=== PATIENT | female | born 1990 | race Caucasian/White ===

== ENCOUNTER 2017-04-18 15:28 | Emergency (ER) | payer BC ==
--- NOTE | 2017-04-18 17:39 | ED ORDER SUMMARY ---
..... Patient: RENATA LLANOS OrderSheet [facility] VisitID: [id number] [address] [place] [address] 27y, F Registration Date/Time: 04/18/2017 ORDER SHEET Weight: 65.7 kg (stated) Allergies: Benadryl GENERAL ORDERS: CBC w Diff Urgent (16:29 04/18/2017 EKoroleva P.A.-C) (Ack 16:31 JACIELoerner) (16:48 ALawrence ER Tech1) CMP Urgent (16:29 04/18/2017 EKoroleva P.A.-C) (Ack 16:31 KHoerner) (16:48 ALawrence ER Tech1) UA-Culture if indicated Urgent (16:04/18/2017 EKoroleva P.A.-C) (16:31 JRomanelli R.N.) (Ack 16:31 JACIELoeyareli) Urine Urgent (16:04/18/2017 EKoroleva P.A.-C) (16:31 JRomanelli R.N.) (Ack 16:31 JACIELoerner) MEDICATION ORDERS: KCl PO 40 meq (NOW) (17:30 04/18/2017 EKoroleva P.A.-C) (Cancelled: Other17:58 JRomanelli R.N.) IV FLUIDS: IV NS : initial bolus none -, then 1000 mL/hr (NOW) (16:17 04/18/2017 Benitezelli R.N. verbal order read back to EKoroleamy P.A.-C) (16:20 omanelli R.N.) Zofran IV 4 mg (NOW) (16:29 04/18/2017 EKoroleva P.A.-C) (17:16 JRomanelli R.N.) Toradol IV 30 mg (NOW) (16:29 04/18/2017 EKoroleva P.A.-C) (17:17 JRomanelli R.N.) ORDER SHEET NOTES: [Electronically signed by Shirley VidesAMarissa-Ramakrishna (17:42 04/18/2017)] [Electronically signed by Sami Thompson R.N. (19:34 04/18/2017)] [Electronically locked/signed by Sami Thompson R.N. (:34 04/18/2017)]
--- NOTE | 2017-04-18 17:39 | ED NURSING NOTES ---
Clinical Report - Nurses Located Within [facility] [address] [place] [address] 04/18/2017 15:31 Patient: RENATA LLANOS TRIAGE Triage time 15:35 Apr 18 2017. Acuity: LEVEL 3. Chief Complaint: NAUSEA, VOMITING and DIARRHEA. Alert. DOMINIK COMA SCORE: Alger Coma Scale: 15- eyes open spontaneously (4); best verbal response- oriented x 4 (5); best motor response- obeys commands (6). --15:49 Sami Thompson R.N. 15:36 04/18/17. BP: 109/60. HR: 88. RR: 18. O2 saturation: 97% on room air. Temp: 100.1 F. Pain level now: 12/01. Additional comments: Abdominal pain. --15:49 Sami Thompson R.N. Weight: 65.7 kg stated. Height/Length: 65 inches Per Patient. BMI: 24.1. --15:42 Sami Thompson R.N. Medications Control Pills 1 pill, daily. --15:41 Sami Thompson R.N. Allergies Benadryl. Definite Moderate(itching) --15:42 Sami Thompson R.N. History Arrived by private vehicle. Historian: patient. Accompanied by father. Primary physician (Analy Morris, [place], [place]). ( Nausea V/D since 0130 this AM. Pt states that. Pt states that she ate a Delivery meal for dinner prior to onset and she isn't sure if she wasn't allergic to some ingredient in the meal.). This started today. Onset. (about 14 hours ago). She has had nausea, vomiting and diarrhea. Treatment DIRECTOR MEDICAL: (PeptoBismol ~ 2 hours ago). PAST MEDICAL HX: Negative. Immunizations: status is unknown. Last normal menstrual period was 2 weeks ago. Denies current . SURGERY HX: No history of previous surgery. SOCIAL HX: Never smoker. No alcohol use or drug use. No recent travel. No infectious disease exposure. ABUSE ASSESSMENT: No report of abuse. FALL RISK ASSESSMENT: Fall risk assessment completed. No fall risk identified. NUTRITIONAL RISK ASSESSMENT: The nutritional risk assessment revealed no deficiencies. FUNCTIONAL ASSESSMENT: Functional assessment: no impairments noted. LEARNING NEEDS ASSESSMENT: The learning needs assessment revealed no barriers. SKIN INTEGRITY ASSESSMENT: Skin integrity risk assessment completed. No skin integrity risk identified. --15:49 Sami Thompson R.N. Interventions ID and allergy band on patient. To treatment room. --15:49 Sami Thompson R.N. PHYSICAL ASSESSMENT Ambulatory to room. GENERAL / NEURO / PSYCH: Alert. Oriented X 4. HEENT: Mucous membranes are pink. RESPIRATORY: Respirations not labored. CVS: Cardiac rhythm: (RRR). Capillary refill less than 2 seconds. GI / : Abdomen soft. Bowel sounds within normal limits. SKIN: Skin is warm and dry. --15:49 Sami Thompson R.N. NURSING PROGRESS NOTES Patient gowned. Reassurance given. Patient identifiers checked. Call light placed in reach. Side rails up x 1. Bed placed in lowest position. Brakes of bed on. Patient ready for evaluation- chart flagged and ED physician notified. --15:50 Sami Thompson R.N. 16:04 04/18/2017 Site #1 started via IV in the right wrist with an 20g angiocath, with aseptic technique and good blood return; two attempts. Saline lock flushed with 10 mL saline (Unable to draw a blood specimen from this site). --16:19 Sami Thompson R.N. 16:05 04/18/2017 Started bag #1 1000 mL IV Fluids IV NS (Saline); at 1000 mL/hr over 60 minute(s) via site #1. Allergies verified and confirmed 5 rights. IV patency established. IV site checked: no pain, redness, or swelling. IV flushed thoroughly pre- and post-medication administration. --16:20 Sami Thompson R.N. 16:45 04/18/2017 IV Fluids IV NS Bag Change: bag #1 infused. Total amount infused: 1000. STARTED bag #2 at 1000 mL/hr. Confirmed 5 rights. IV patency established. IV site checked: no pain, redness, or swelling. IV flushed thoroughly. --17:15 Sami Thompson R.N. 16:47 04/18/2017 Zofran (Ondansetron HCl) IVP 4 mg given over 2 minute(s) via site #1. Allergies verified and confirmed 5 rights. IV patency established. IV site checked: no pain, redness, or swelling. IV flushed thoroughly pre- and post-medication administration. IVP given by RN. --17:16 Sami Thompson R.N. 16:52 04/18/2017 Toradol IVP 30 mg given over 2 minute(s) via site #1. Allergies verified and confirmed 5 rights. IV patency established. IV site checked: no pain, redness, or swelling. IV flushed thoroughly pre- and post-medication administration. IVP given by RN. --17:17 Sami Thompson R.N. 17:39 04/18/2017 IV Fluids IV NS Discontinued: bag #2 infused. Total amount infused: 1000 mL. IV patency established. IV site checked: no pain, redness, or swelling. IV flushed thoroughly. --19:33 Sami Thompson R.N. 17:40 04/18/2017 Site #1 removed upon discharge. Catheter intact. Manual pressure, bandaid and bandage applied. --19:34 Sami Thompson R.N. DISPOSITION / DISCHARGE 17:40 04/18/17. BP: 116/67. HR: 77. RR: 16. O2 saturation: 100% on room air. Temp: 99.5 F (oral). Pain level now: 0/10. --19:30 Sami Thompson R.N. Departure time: 1745. --19:31 Sami Thompson R.N. 17:45. Condition at departure: improved. No learning barriers present. Discharge instructions provided and reviewed with the patient. Reviewed medication(s) dosing information (prescription given to pt). Reviewed referral to family practice for followup. Patient verbalized understanding. Written instructions provided in Serbian. The patient was discharged by the physician. She was discharged home and accompanied by parent. She left the Emergency Department ambulatory and via private vehicle. Parent driving. FALL RISK ASSESSMENT: Fall risk assessment completed. No fall risk identified. --19:32 Sami Thompson R.N. Locked/Released at 04/18/2017 19:34 by Sami Thompson R.N.
--- NOTE | 2017-04-18 17:39 | ED ORDER SUMMARY ---
..... Patient: RENATA LLANOS OrderSheet [facility] VisitID: [id number] [address] [place] [address] 27y, F Registration Date/Time: 04/18/2017 ORDER SHEET Weight: 65.7 kg (stated) Allergies: Benadryl GENERAL ORDERS: CBC w Diff Urgent (16:29 04/18/2017 EKoroleva P.A.-C) (Ack 16:31 JACIELoerner) (16:48 ALawrence ER Tech1) CMP Urgent (16:29 04/18/2017 EKoroleva P.A.-C) (Ack 16:31 KHoerner) (16:48 ALawrence ER Tech1) UA-Culture if indicated Urgent (16:04/18/2017 EKoroleva P.A.-C) (16:31 JRomanelli R.N.) (Ack 16:31 JACIELoeyareli) Urine Urgent (16:04/18/2017 EKoroleva P.A.-C) (16:31 JRomanelli R.N.) (Ack 16:31 JACIELoerner) MEDICATION ORDERS: KCl PO 40 meq (NOW) (17:30 04/18/2017 EKoroleva P.A.-C) (Cancelled: Other17:58 JRomanelli R.N.) IV FLUIDS: IV NS : initial bolus none -, then 1000 mL/hr (NOW) (16:17 04/18/2017 Benitezelli R.N. verbal order read back to EKoroleamy P.A.-C) (16:20 omanelli R.N.) Zofran IV 4 mg (NOW) (16:29 04/18/2017 EKoroleva P.A.-C) (17:16 JRomanelli R.N.) Toradol IV 30 mg (NOW) (16:29 04/18/2017 EKoroleva P.A.-C) (17:17 JRomanelli R.N.) ORDER SHEET NOTES: [Electronically signed by Shirley VidesAMarissa-Ramakrishna (17:42 04/18/2017)] [Electronically signed by Sami Thompson R.N. (19:34 04/18/2017)] [Electronically locked/signed by Sami Thompson R.N. (:34 04/18/2017)]
--- NOTE | 2017-04-18 17:39 | ED CLINICAL REPORT ---
Clinical Report - Physicians/Mid Levels [facility] [address] [place] [address] 04/18/2017 15:31 Patient: RENATA LLANOS Time Seen: 15:49 Apr 18 2017. Arrived- By private vehicle. Historian- patient. HISTORY OF PRESENT ILLNESS Chief Complaint: VOMITING and DIARRHEA. Is still present. The patient has had nausea, vomiting and diarrhea. (patient presents to the emergency department with onset of emesis and diarrhea last night after eating a meal. Patient with no abdominal pain currently, however has had some cramping off and on. Patient with no urgency or frequency. Patient with no fevers. No other sick contacts. No recent foreign travel. No back pain.). REVIEW OF SYSTEMS No difficulty with urination or dark urine. All systems otherwise negative, except as recorded above. ADDITIONAL NOTES The nursing notes have been reviewed. PHYSICAL EXAM Vital Signs: 04/18/2017 15:36 BP: 109/60. HR: 88. RR: 18. O2 saturation: 97%. Temp: 100.1 F. Pain level now: 12/01. Appearance: Alert. Eyes: Eyes normal inspection. ENT: Ears normal. Nose normal. Pharynx normal. No pharyngeal erythema. Neck: Normal inspection. No carotid bruit or lymphadenopathy. CVS: Normal heart rate and rhythm. Heart sounds normal. Respiratory: No respiratory distress. Breath sounds normal. No accessory muscle use or decreased air movement. Abdomen: Soft and nontender. Bowel sounds normal. No mass. No obesity or abdominal tenderness. Back: Normal inspection. No CVA tenderness. Skin: Skin warm. Normal skin color. No rash. Neuro: Oriented X 3. LABS, X-RAYS, AND EKG Laboratory Tests: UA-Culture if indicated: (MALINI: 04/18/2017 16:25) ( MsgRcvd 04/18/2017 16:50) Final results Test Result Flag Units (Reference) URINE COLOR YELLOW URINE APPEARANCE SL CLOUDY URINE GLUCOSE NEGATIVE (NEGATIVE) URINE BILIRUBIN NEGATIVE (NEGATIVE) URINE KETONE NEGATIVE (NEGATIVE) URINE SPECIFIC GRAVITY 1.015 (1.010-1.030) URINE PH 7.0 (5.0-8.0) URINE PROTEIN TRACE (NEGATIVE) URINE UROBILINOGEN 0.2 EU/dL (0.2-1.0) URINE NITRITE NEGATIVE (NEGATIVE) URINE BLOOD NEGATIVE (NEGATIVE) URINE LEUK ESTERASE NEGATIVE (NEGATIVE) URINE RBC NONE SEEN rbc/hpf (0-1) URINE WBC 0-1 wbc/hpf (0-1) URINE EPITHELIAL CELLS 3-5 EPI/hpf (0-5) URINE BACTERIA MODERATE (2+ TO 3+) (NONE SEEN) URINE COMMENT CULTURE INDICATED 1+ MUCUSURINE CULTURES ARE SET-UP BASED ON THE FOLLOWING CRITERIA:POSITIVE NITRITEPOSITIVE LEUKOCYTE ESTERASEGREATER THAN 10 WHITE BLOOD CELLSMODERATE (2+) OR GREATER BACTERIA Urine: (MALINI: 04/18/2017 16:25) ( [facility] 04/18/2017 16:38) Final results Test Result Flag Units (Reference) URINE NEGATIVE CBC w Diff: (MALINI: 04/18/2017 16:37) ( [facility] 04/18/2017 16:51) Final results Test Result Flag Units (Reference) WHITE BLOOD COUNT 4.7 K/uL (4.5-11.5) RED BLOOD COUNT 4.51 M/uL (4.00-5.20) HEMOGLOBIN 13.2 gm/dL (12.0-16.0) HEMATOCRIT 39.1 % (36.0-46.0) MEAN CELL VOLUME 87 fL (80-100) MEAN CORPUSCULAR HGB 29 pg (26-34) MEAN CORPUSCULAR HGB CONC 34 g/dL (31-37) RED CELL DISTRIBUTION WIDTH 12.6 % (11.6-14.8) PLATELET COUNT 277 K/uL (150-400) NEUTROPHIL % 86.7 H % (50-75) LYMPH % 7.7 L % (25-40) MONO % 4.8 % (3-14) EOSINOPHIL % 0.8 % (0-4) BASOPHIL % 0 % (0-2) CMP: (MALINI: 04/18/2017 16:37) ( [facility] 04/18/2017 17:11) Final results Test Result Flag Units (Reference) GLUCOSE 99 mg/dL (70-110) BUN 12 mg/dL (7-18) CREATININE 0.9 mg/dL (0.6-1.3) Estimated GFR >60 mL/min Estimated GFR- >60 mL/min Note: Persistent reduction over 3 months in eGFR<60 mL/min/1.73 m2 defines CKD. Patients with eGFR values>=60 mL/min/1.73 m2 may also have CKD if evidence ofpersistent proteinuria. Additional information may be foundat www.kidney.org. SODIUM 140 mmol/L (136-145) POTASSIUM 3.4 L mmol/L (3.5-5.1) CHLORIDE 107 mmol/L (98-107) CARBON DIOXIDE 24 mmol/L (21-32) CALCIUM 7.3 L mg/dL (8.5-10.1) TOTAL PROTEIN 5.9 L g/dL (6.4-8.2) ALBUMIN 2.9 L g/dL (3.3-5.0) BILIRUBIN, TOTAL 0.5 mg/dL (0.0-1.0) ALKALINE PHOSPHATASE 55 U/L (46-116) AST (SGOT) 11 L U/L (15-37) ALT (SGPT) 19 U/L (12-78) . PROGRESS AND PROCEDURES Course of Care: Patient with no abdominal pain, with emesis diarrhea, largely not seen in the emergency department, may be food related. Abdomen is soft nontender, no guarding, no peritoneal signs. Patient with no urinary frequency or urgency, mild bacteria present, will culture and await for such results. Patient here with vomiting diarrhea. Given hydration, potassium was slightly low, given 40 mEq orally in the emergency department. 04/18/2017 15:36 BP: 109/60. HR: 88. RR: 18. O2 saturation: 97%. Temp: 100.1 F. Pain level now: 12/01. Patient is stable. Symptoms better. Patient/family counseled. Disposition: Discharged. CLINICAL IMPRESSION Vomiting with nausea and volume depletion. Diarrhea INSTRUCTIONS Do not work tomorrow. Drink plenty of fluids. Prescription Medications: Zofran (orally disintegrating tablets) 4 mg: take 1 orally every 6 hours for 3 days as needed for nausea. Dispense ten (10). No refill. Substitution is permissible. OTC Medications: Imodium (available over the counter): take according to label instructions. Follow-up: Follow up with your doctor in three days as needed. (Electronically signed by Shirley Vides P.A.-C 04/18/2017 17:42)
--- NOTE | 2017-04-18 19:35 | ED DISCHARGE INSTRUCTIONS ---
Patient: RENATA LLANOS General Instructions [facility] VisitID: [id number] [place] [address] 27y, F Registration Date/Time: 04/18/2017 Vomiting with nausea and volume depletion. Diarrhea INSTRUCTIONS Do not work tomorrow. Drink plenty of fluids. Prescription Medications: Zofran (orally disintegrating tablets) 4 mg: take 1 orally every 6 hours for 3 days as needed for nausea. Dispense ten (10). No refill. Substitution is permissible. OTC Medications: Imodium (available over the counter): take according to label instructions. Follow-up: Follow up with your doctor in three days as needed. ADDITIONAL INFORMATION Vomiting [6Yr-Adult] Vomiting is a common symptom that may be due to different causes. These include gastroenteritis ("stomach flu"), food poisoning and gastritis. There are other more serious causes of vomiting which may be hard to diagnose early in the illness. Therefore, it is important to watch for the warning signs listed below. The main danger from repeated vomiting is dehydration. This is due to excess loss of water and minerals from the body. When this occurs, body fluids must be replaced. Home Care: If symptoms are severe, rest at home for the next 24 hours. You may use acetaminophen (Tylenol) or ibuprofen (Motrin, Advil) to control fever, unless another medicine was prescribed. [NOTE : If you have chronic liver or kidney disease or ever had a stomach ulcer or GI bleeding, talk with your doctor before using these medicines.] (Aspirin should never be used in anyone under 18 years of age who is ill with a fever. It may cause severe liver damage.) Avoid tobacco and alcohol use, which may worsen your symptoms. If medicines for vomiting were prescribed, take as directed. Once vomiting stops, then follow these guidelines: During The First 12-24 Hours follow the diet below: FRUIT JUICES: Apple, grape juice, clear fruit drinks, and electrolyte replacement drinks. BEVERAGES: Soft drinks without caffeine; mineral water (plain or flavored), decaffeinated tea and coffee. SOUPS: Clear broth, consomm and bouillon DESSERTS: Plain gelatin, popsicles and fruit juice bars. As you feel better, you may add 6-8 ounces of yogurt per day. During The Next 24 Hours you may add the following to the above: Hot cereal, plain toast, bread, rolls, crackers Plain noodles, rice, mashed potatoes, chicken noodle or rice soup Unsweetened canned fruit (avoid pineapple), bananas Limit caffeine and chocolate. No spices or seasonings except salt. During The Next 24 Hours Gradually resume a normal diet, as you feel better and your symptoms lessen. Follow Up with your doctor as advised if you are not improving over the next 2-3 days. Get Prompt Medical Attention if any of the following occur: Constant right-sided lower abdominal pain or increasing general abdominal pain Continued vomiting (unable to keep liquids down) for 24 hours Frequent diarrhea (more than 5 times a day); blood (red or black color) or mucus in diarrhea Reduced urine output or extreme thirst Weakness, dizziness or fainting Unusually drowsy or confused Fever of 100.4F (38C) oral or higher, not better with fever medication Yellow color of the eyes or skin Diarrhea, Uncertain Cause (Adult, Report Pending) Diarrhea has several possible causes. Commonstomach fluis caused by a virus. Food poisoning, bacteria or parasites are other causes for diarrhea. Only diarrhea caused by bacteria or parasites requires treatment with an antibiotic. Diarrhea from a virus or food poisoning improves with simple home treatment. A stool sample is needed to make the diagnosis of an infection with bacteria or parasites. Up to three stool specimens may be required to diagnose This may take up to two days to get the result. It may be necessary to wait until the stool test is complete to make the diagnosis and select the best antibiotic to prescribe. Home Care: If symptoms are severe, rest at home for the next 24 hours or until you are feeling better. You may use acetaminophen (Tylenol) or ibuprofen (Motrin, Advil) to control fever, unless another medicine was prescribed. [NOTE: If you have chronic liver or kidney disease or ever had a stomach ulcer or GI bleeding, talk with your doctor before using these medicines.] (Aspirin should never be used in anyone under 18 years of age who is ill with a fever. It may cause severe liver damage.) Avoid tobacco, caffeine and alcohol, which may worsen your symptoms. If anti-diarrhea medicine was prescribed, take this only as directed. Sometimes anti-diarrhea medicine can make your condition worse if the cause is an infectious diarrhea. Therefore, anti-diarrhea medicine should not be taken for this condition unless advised by your doctor. During The First 12-24 Hours follow the diet below: BEVERAGES: Sport drinks like Gatorade, soft drinks without caffeine; shannon sanjuanita, mineral water (plain or flavored), decaffeinated tea and coffee. SOUPS: Clear broth, consomm and bouillon DESSERTS: Plain gelatin (Jell-O), popsicles and fruit juice bars. During The Next 24 Hours you may add the following to the above: Hot cereal, plain toast, bread, rolls, crackers Plain noodles, rice, mashed potatoes, chicken noodle or rice soup Unsweetened canned fruit (avoid pineapple), bananas Limit fat intake to less than 15 grams per day by avoiding margarine, butter, oils, mayonnaise, sauces, gravies, fried foods, peanut butter, meat, poultry and fish. Limit fiber; avoid raw or cooked vegetables, fresh fruits (except bananas) and bran cereals. Limit caffeine and chocolate. No spices or seasonings except salt. During The Next 24 Hours Gradually resume a normal diet, as you feel better and your symptoms lessen. Follow Up with your doctor or as advised if you are not improving over the next two days. If you were asked to bring a specimen from home, bring the sample on the day of collection. You may call in 2 days (or as directed) for the results. Get Prompt Medical Attention if any of the following occur: Increasing abdominal pain or constant lower right abdominal pain Continued vomiting (unable to keep liquids down) Frequent diarrhea (more than 5 times a day) Blood in vomit or stool (black or red color) Reduced oral intake Dark urine, reduced urine output Weakness, dizziness, fainting Drowsiness, confusion, stiff neck or seizure Fever of 100.4F (38C) oral or higher, not better with fever medication New rash [place] Diet A bland diet is used for patients with an upset stomach. It consists of foods that are mild and easy to digest. It is better to eat small frequent meals rather than three large meals a day. BEVERAGES OK: Fruit juices, non-caffeinated teas and coffee, non-carbonated kim AVOID: Carbonated beverage, caffeinated tea and coffee, all alcoholic beverages BREAD OK: Refined white, wheat or rye bread, galileo or soda crackers, [place] toast, plain rolls, bagels AVOID: Whole-grain bread CEREAL OK: Refined cereals: cooked or ready to eat AVOID: Whole grain cereals and granola, or those containing bran, seeds or nuts DESSERTS OK: Peanut butter and all others except those to "avoid" AVOID: Chocolate, cocoa, coconut, popcorn, nuts, seeds, jam, marmalade FRUITS OK: Canned, cooked, frozen or fresh fruits without seeds or tough skin AVOID: Olives, skin and seeds of fruit MEATS OK: All fresh or preserved meat, fish and fowl AVOID: Any that are prepared with those spices to "avoid" CHEESE & EGGS OK: Eggs, cottage cheese, cream cheese, other cheeses AVOID: All cheeses made with those spices to "avoid" POTATOES & PASTA OK: Potato, rice, macaroni, noodles, spaghetti AVOID: None SOUPS OK: All soups without heavy seasoning AVOID: Soups made with those spices to "avoid" VEGETABLES OK: Canned, cooked, fresh or frozen mildly flavored vegetables without seeds, skins or coarse fiber AVOID: Vegetables prepared with those spices to "avoid"; skin and seeds of vegetables and those with coarse fiber SPICES OK: Salt, lemon and match-e-be-nash-she-wish band juice, vinegar, all extracts, jennifer, cinnamon, thyme, mace, allspice, paprika AVOID: [place] powder, cloves, pepper, seed spices, garlic, gravy pickles, highly seasoned salad dressings Clear Liquid Diet Clear liquids are any liquid that you can see through as well as those that are very easy to digest. This is used while the body is recovering from irritation or infection of the stomach or intestinal tract. It may also be used before special procedures or surgery. This diet is to be used no more than three days. You may include the following items. Adults Adults should drink a total of 23 quarts of liquid per day. It may be easier to drink small frequent servings rather than a few large ones. Liquids can include: Fruit juices.Strained orange juice or lemonade (no pulp), apple, grape and cranberry juice, clear fruit drinks, sports drinks Beverages.Sport drinks, sodas, mineral water (plain or flavored), tea, black coffee, liquid gelatin (add twice the recommended amount of water) Soups.Clear broth, consomm, bouillon Desserts.Plain gelatin, popsicles, fruit juice bars Children Over 2 years old The following liquids are acceptable for children over age 2: Fruit juices.Strained orange juice or lemonade (no pulp), apple, grape and cranberry juice, clear fruit drinks Beverages. Sports drinks, sodas, mineral water (plain or flavored), tea, liquid gelatin (add twice the recommended amount of water) Soups. Clear broth, consomm, bouillon Desserts. Plain gelatin, popsicles, fruit juice bars Children under 2 years old Oral rehydration fluids such are available at drug stores and most grocery stores without a prescription. Ondansetron Hydrochloride Oral tablet What is this medicine? ONDANSETRON (on SONIA se chastity) is used to treat nausea and vomiting caused by chemotherapy. It is also used to prevent or treat nausea and vomiting after surgery. How should I use this medicine? Take this medicine by mouth with a glass of water. Follow the directions on your prescription label. Take your doses at regular intervals. Do not take your medicine more often than directed. Talk to your boiler plant operator regarding the use of this medicine in children. Special care may be needed. What side effects may I notice from receiving this medicine? Side effects that you should report to your doctor or health child day care center worker as soon as possible: allergic reactions like skin rash, itching or hives, swelling of the face, lips or tongue breathing problems dizziness fast or irregular heartbeat feeling faint or lightheaded, falls fever and chills swelling of the hands or feet tightness in the chest Side effects that usually do not require medical attention (report to your doctor or health child day care center worker if they continue or are bothersome): constipation or diarrhea headache What may interact with this medicine? Do not take this medicine with any of the following medications: -apomorphine -cisapride -dofetilide -dronedarone -pimozide -thioridazine -ziprasidone This medicine may also interact with the following medications: -carbamazepine -phenytoin -rifampicin -tramadol -other medicines that prolong the QT interval (cause an abnormal heart rhythm) What if I miss a dose? If you miss a dose, take it as soon as you can. If it is almost time for your next dose, take only that dose. Do not take double or extra doses. Where should I keep my medicine? Keep out of the reach of children. Store between 2 and 30 degrees C (36 and 86 degrees F). Throw away any unused medicine after the expiration date. What should I tell my health care provider before I take this medicine? They need to know if you have any of these conditions: heart disease history of irregular heartbeat liver disease low levels of magnesium or potassium in the blood an unusual or allergic reaction to ondansetron, granisetron, other medicines, foods, dyes, or preservatives or trying to get breast-feeding What should I watch for while using this medicine? Check with your doctor or health child day care center worker right away if you have any sign of an allergic reaction. You have been given the following additional information: Vomiting (6Y-Adult) Diarrhea, Unk Cause (Adult) Report [place] Diet, [place] (Adult) Diet, Clear Liquid Ondansetron Hydrochloride Oral tablet Do not work tomorrow. (Electronically signed by Shirley Vides P.A.-C 04/18/2017 17:42)
--- NOTE | 2017-04-18 19:35 | ED MAR SUMMARY ---
..... Medication Administration Record [facility] [address] [place] [address] Patient: RENATA LLANOS Visit ID: [id number] 27y, F Weight: 65.7 kg Height/Length: 65 in BMI: 24.1 ALLERGIES: Benadryl Start 16:05 04/18/2017 Sami Thompson R.N., Stop 17:39 04/18/2017 Sami Thompson R.N. Medication Administered: IV NS (SALINE), Dose: IV Fluids over 60 minute(s), Rate: 1000 mL/hr, Dispensed: 1000 mL bag, Site: #1 right wrist. Medication Ordered: IV NS : initial bolus none -, then 1000 mL/hr (NOW). Given 16:47 04/18/2017 Sami Thompson R.N. Medication Administered: ZOFRAN [IVP] (ONDANSETRON HCL), Dose: 4 mg IVP over 2 minute(s), Site: #1 right wrist. Medication Ordered: Zofran IV 4 mg (NOW). Given 16:52 04/18/2017 Sami Thompson R.N. Medication Administered: TORADOL [IVP], Dose: 30 mg IVP over 2 minute(s), Site: #1 right wrist. Medication Ordered: Toradol IV 30 mg (NOW).
--- NOTE | 2017-04-18 19:35 | ED MAR SUMMARY ---
..... Medication Administration Record [facility] [address] [place] [address] Patient: RENATA LLANOS Visit ID: [id number] 27y, F Weight: 65.7 kg Height/Length: 65 in BMI: 24.1 ALLERGIES: Benadryl Start 16:05 04/18/2017 Sami Thompson R.N., Stop 17:39 04/18/2017 Sami Thompson R.N. Medication Administered: IV NS (SALINE), Dose: IV Fluids over 60 minute(s), Rate: 1000 mL/hr, Dispensed: 1000 mL bag, Site: #1 right wrist. Medication Ordered: IV NS : initial bolus none -, then 1000 mL/hr (NOW). Given 16:47 04/18/2017 Sami Thompson R.N. Medication Administered: ZOFRAN [IVP] (ONDANSETRON HCL), Dose: 4 mg IVP over 2 minute(s), Site: #1 right wrist. Medication Ordered: Zofran IV 4 mg (NOW). Given 16:52 04/18/2017 Sami Thompson R.N. Medication Administered: TORADOL [IVP], Dose: 30 mg IVP over 2 minute(s), Site: #1 right wrist. Medication Ordered: Toradol IV 30 mg (NOW).
--- NOTE | 2017-04-18 19:35 | ED MED RECONCILIATION SUMMARY ---
Patient: RENATA LLANOS Medication Reconciliation Report [facility] VisitID: [id number] [address] [place] [address] 27y, F Registration Date/Time: 04/18/2017 Weight: 65.7 kg Height/Length: 65 in. BMI: 24.1 ALLERGIES: Benadryl The patient's Home Medications are listed below: THE FOLLOWING MEDICATIONS NEED TO BE RECONCILED: Control Pills 1 pill, daily The source(s) of the original Home Medication information: Not obtained. The following Medications were given to the patient in the Emergency Department: IV NS IV Fluids bolus 0, then 1000 mL/hr, administered: 04/18/2017 4:05:00 PM Zofran [IVP] IVP 4 mg, administered: 04/18/2017 4:47:00 PM Toradol [IVP] IVP 30 mg, administered: 04/18/2017 4:52:00 PM The following Medications were prescribed to the patient: Zofran (orally disintegrating tablets) 4 mg: take 1 orally every 6 hours for 3 days as needed for nausea. Dispense ten (10). No refill. Substitution is permissible. -- Shirley Vides, P.A.-Ramakrishna Imodium (available over the counter): take according to label instructions. -- Shirley Vides, P.A.-C
--- NOTE | 2017-04-18 19:35 | ED MED RECONCILIATION SUMMARY ---
Patient: RENATA LLANOS Medication Reconciliation Report [facility] VisitID: [id number] [address] [place] [address] 27y, F Registration Date/Time: 04/18/2017 Weight: 65.7 kg Height/Length: 65 in. BMI: 24.1 ALLERGIES: Benadryl The patient's Home Medications are listed below: THE FOLLOWING MEDICATIONS NEED TO BE RECONCILED: Control Pills 1 pill, daily The source(s) of the original Home Medication information: Not obtained. The following Medications were given to the patient in the Emergency Department: IV NS IV Fluids bolus 0, then 1000 mL/hr, administered: 04/18/2017 4:05:00 PM Zofran [IVP] IVP 4 mg, administered: 04/18/2017 4:47:00 PM Toradol [IVP] IVP 30 mg, administered: 04/18/2017 4:52:00 PM The following Medications were prescribed to the patient: Zofran (orally disintegrating tablets) 4 mg: take 1 orally every 6 hours for 3 days as needed for nausea. Dispense ten (10). No refill. Substitution is permissible. -- Shirley Vides, P.A.-Ramakrishna Imodium (available over the counter): take according to label instructions. -- Shirley Vides, P.A.-C
== END 2017-04-18 17:45 | disposition home or self-care (01) ==
LOC: ED SRH 15:28
DX: R11.2 Nausea with vomiting, unspecified (principal); E86.9 Volume depletion, unspecified; R19.7 Diarrhea, unspecified
CPT/HCPCS: 90004; 90074; 90100; 90469; 93070; 95059